=== PATIENT | male | born 1960 | race Caucasian/White ===

== ENCOUNTER 2017-01-09 08:30 | Emergency (ER) | payer BC ==
[~2017-01-09] VITALS: Ht 177.8 cm; Wt 86.2 kg
[~2017-01-09 08:30] MED LIST: HYDR200T PO; LISI1TAB10 PO; TAMS0.4C2 PO
[2017-01-09] MEDS ORDERED: ONDANSETRON 4 MG/2 ML (SDV) Z0FRAN ONE (08:38)
[2017-01-09] MEDS ORDERED: DEXAMETHASONE PF 10 MG/ML (DECADRON) VIAL IV ONE (08:45)
[2017-01-09] MEDS ORDERED: ONDANSETRON 4 MG/2 ML (SDV) Z0FRAN IVP ONE (08:45)
[2017-01-09] MEDS ORDERED: NS IV 1000 ML 1,000 ML IV SCH (08:45)
[2017-01-09 08:58] LABS: BASOPHILS % (AUTO) 0 % (0-10); EOSINOPHILS # (AUTO) 0.3 10^3/uL (0.0-0.3); EOSINOPHILS % (AUTO) 2 % (0-10); LYMPHOCYTES # (AUTO) 1.7 X 10^3 (1.0-4.0); LYMPHOCYTES % (AUTO) 10 % (12-44); MEAN CORPUSCULAR HEMOGLOBIN 32 PG (25-34); MEAN CORPUSCULAR HGB CONC 34 G/DL (32-36); MEAN CORPUSCULAR VOLUME 93 FL (80-99); MEAN PLATELET VOLUME 9.4 FL (7.4-10.4); MONOCYTES # (AUTO) 1.4 X 10^3 (0.0-1.0); MONOCYTES % (AUTO) 9 % (0-12); NEUTROPHILS # (AUTO) 12.9 X 10^3 (1.8-7.8); NEUTROPHILS % (AUTO) 79 % (42-75); PLATELET COUNT 177 10^3/uL (130-400); RED BLOOD COUNT 4.01 10^6/uL (4.35-5.85); RED CELL DISTRIBUTION WIDTH 13.1 % (10.0-14.5); WHITE BLOOD COUNT 16.3 10^3/uL (4.3-11.0)
--- NOTE | 2017-01-09 08:58 | ED General ---
General Stated Complaint: COLLAPSED Source of Information: Patient, EMS, Family Exam Limitations: No Limitations History of Present Illness Time Seen by Provider: 08:34 Initial Comments Here by EMS after having syncopal episode at [facility] today. Apparently finished checking out and then passed out. Denies any pain or injury from that. He does have lung cancer with metastatic brain cancer. He is on Decadron and just had decreased dosing to 2 tablets. Last radiation treatment was yesterday. He is not undergoing chemotherapy currently. He does have port in place but it is apparently not working. This is a new placement 10 days ago. Reports abdominal fullness and nausea with vomiting. EMS noted and he has persistent hypotension. Denies chest pain or breathing problems. He has had difficulty sleeping for the last few weeks since being on Decadron. Timing/Duration: 1-3 Hours Severity: Moderate, Severe Associated Systoms: No Chest Pain, No Cough, Nausea/Vomiting, No Shortness of Air, Syncope, Weakness Allergies and Home Medications Allergies Coded Allergies: No Known Drug Allergies (Verified Allergy, Unknown, 01/11/09) Home Medications Hydroxychloroquine Sulfate 200 Mg Tablet, 200 MG PO BID, (Reported) Lisinopril/Hydrochlorothiazide 1 Each Tablet, 1 EACH PO DAILY, (Reported) Tamsulosin HCl 0.4 Mg Cap.er.24h, 0.4 MG PO DAILY, (Reported) Constitutional: see HPI, chills, No fever, weakness EENTM: no symptoms reported Respiratory: no symptoms reported Cardiovascular: see HPI, No edema, syncope Gastrointestinal: abdominal pain (generalized), nausea, vomiting Genitourinary: no symptoms reported Musculoskeletal: no symptoms reported All Other Systems Reviewed Negative Unless Noted: Yes Past Mmfitth-Jpjnji-Ymnzbd Hx Patient Social History Alcohol Use: Denies Use Recreational Drug Use: No Smoking Status: Former Smoker Surgeries HX Surgeries: Yes (dental sx, ganglion cyst removed) Respiratory Hx Respiratory Disorders: No Cardiovascular Hx Cardiac Disorders: Yes Cardiac Disorders: Hypertension Reproductive System Hx Reproductive Disorders: No Genitourinary Hx Genitourinary Disorders: No Gastrointestinal Hx Gastrointestinal Disorders: No Musculoskeletal Hx Musculoskeletal Disorders: No Endocrine Hx Endocrine Disorders: No HEENT HX ENT Disorders: No Blood Transfusions Hx Blood Disorders: No Reviewed Nursing Assessment Reviewed/Agree w Nursing PMH: Yes Family Medical History Significant Family History: No Pertinent Family Hx Physical Exam-Suspected Sepsis Physical Exam Vital Signs Vital Sign - Last 12Hours 01/09/17 01/09/17 08:30 08:35 Temp 97.5 Pulse 60 Resp 18 Pulse Ox 95 O2 Delivery Room Air O2 Flow Rate 2.00 Capillary Refill : General Appearance: No Apparent Distress, WD/WN HEENT: PERRL/EOMI, Pharynx Normal Neck: Supple, No Tender Lateral, No Tender Midline, Other (bruising noted to the lower neck with puffiness noted anteriorly. Noted upper chest wall closed incisions from port placement with bruising to the anterior upper chest and neck.) Respiratory: No Respiratory Distress, Crackles (left base) Cardiovascular: Regular Rate, Rhythm, No Murmur Gastrointestinal: Non Tender, Soft Back: Normal Inspection, No CVA Tenderness, No Vertebral Tenderness Extremity: Normal Capillary Refill, Normal Inspection, Normal Range of Motion, Non Tender, No Calf Tenderness Neurologic/Psychiatric: Alert, Oriented x3, No Motor/Sensory Deficits, Normal Mood/Affect Skin: cool, ecchymosis (anterior chest as described above) Focused Exam Lactic Acid Level Progress/Results/Core Measures Suspected Sepsis SIRS Temperature: Pulse: Respiratory Rate: Laboratory Tests 01/09/17 08:50: White Blood Count 16.3H Blood Pressure / Mean: Laboratory Tests 01/09/17 08:50: Creatinine 2.70H, INR Comment 1.2, Platelet Count 177, Total Bilirubin 0.5 Results/Orders Lab Results My Orders Orders - SELENE BOLANOS MD Monitor-Rhythm Ecg Trace Only (01/10/17 08:48) Medications Given in ED Vital Signs/I&O Capillary Refill : Progress Note : Progress Note Seen and evaluated. IV by EMS with 1 L normal saline running. Second liter normal saline ordered with second IV established. Labs, chest x-ray, UA, EKG, blood cultures and lactic acid ordered. Concerns for sepsis due to recent cancer and radiation therapy as well as recent port placement. Patient is hypotensive. Patient's weight is estimated at 89 kg. We will initiate third liter of normal saline which will exceeded 30 mL/kg bolus. Decadron 10 mg IV as well as Zofran 4 mg IV ordered and given. Anticipate CT scan of the head as well as chest, abdomen and pelvis. 0947: patient in CT and called down to CT room for concerns of findings. I did review the CT images and noted fairly significant pericardial effusion and patient is having declined pulse pressures as well as blood pressure overall. 0950: I did call Dr. Lamas, surgeon on- call due to concerns for need of pericardiocentesis so that I would have assistance. He will be in the ER shortly. 1006: I have discussed the findings , concerns and procedure to the patient and family. I do believe the patient has moderate pericardial tamponade and requires pericardiocentesis. Dr. Lamas agrees. We placed pigtail catheter into the pericardial space using sterile procedure and ultrasound guidance. Ultrasound guidance by me with Dr. Lamas placing needle. Initially 180 mL of nonclotting blood removed from the pericardial space. Another 120 mL's were removed afterwards with significant improvement in patient's symptoms including decrease in pain as well as improving blood pressure and widening pulse pressure. See Dr. Lamas's procedure note. Patient will require transfer. 1036: I did discuss the case with Dr. Amado, cardiovascular surgeon at [facility] in [place], [place] who wanted me to talk with cardiology. Case discussed with Dr. Woods and he will accept patient to the ICU. All findings, concerns and transfer discussed with patient and family who agree. We will try to go by EMS. 1059: I did discuss the situation with the Shift Captain for EMS. Currently there is another transfer in progress and there will be some delay of up to an hour and a half. This was discussed with patient and family who are okay with waiting and I agree at this point. 1120: Patient's pain is worsening. Blood pressure 89/52 with heart rate of 75. Patient has received Zosyn 4.5 g IV and will get vancomycin 1 g IV. Due to the worsening pain, decision now to go by flight as there could be increased delay in ground transportation and patient needs hospital with higher level of care and potential for cardiothoracic surgery emergently if needed. This was discussed with patient and family who agree. Fentanyl 50 g IV given for pain. Patient has had an additional 420 mL of fluid removed by Dr. Lamas during the preceding time so there is a total of 720 mL of output from pigtail catheter. I did repeat bedside ultrasound shows that the pericardial tamponade greatly reduce. We will attempt to get echocardiogram at this time if available. 1125: Echocardiogram tech is here and will perform that procedure while waiting for flight. Patient has confounding findings and may have findings of septic shock although no specific infection identified. Patient did have 30 mL/kg IV fluid bolus as well as blood cultures and lactic acid followed by administration of Zosyn 4.5 g IV and vancomycin 1 g IV. 1140: Lungs clear to auscultation bilaterally. Heart rate 75. O2 sat 94 percent on room air. Cap refill less than 3 seconds all extremities. Patient mentating well and feeling better. We will avoid pressors at this point due to concerns about bleeding around the heart and patient is otherwise stable. Flight crew here for transfer. An additional 180 mL of pericardial fluid removed by me. Total 900 mL out. Transfer to [facility] via [facility] flight service. Report given by me. ECG Initial ECG Impression Date: January 09, 2017 Initial ECG Impression Time: 08:40 Initial ECG Rate: 77 Initial ECG Rhythm: Normal Sinus Comment Sinus rhythm with PVCs. Normal axis. No evidence of ST elevation PR. Similar to previous from 01/08/2009. Interpreted by. Diagnostic Imaging Diagonstic Imaging: Xray Plain Films/CT/US/NM/MRI: chest Comments NAME: CRISS DIETZ MED REC#: [id number] PT STATUS: REG ER : 1960 PHYSICIAN: SELENE BOLANOS MD ADMIT DATE: 01/09/17/ER Draft Date of Exam:01/09/17 CHEST 1 VIEW, AP/PA ONLY INDICATION: Syncope. History of lung cancer Portable chest shows cardiomegaly with normal vascularity. The lungs are clear. There is no effusion or pneumothorax. A Port-A-Cath is present. IMPRESSION: There is cardiomegaly with no failure. The heart size has increased since the prior study from 01/08/09. Dictated on workstation # [id number] Dict: 01/09/17925 Trans: 01/09/17 0929 CARLOS A [id number] Interpreted by: SKY COVARRUBIAS MD Electronically signed by: Diagonstic Imaging: CT Plain Films/CT/US/NM/MRI: chest, abdomen, pelvis Comments NAME: CRISS DIETZ MED REC#: [id number] PT STATUS: REG ER : 1960 PHYSICIAN: SELENE BOLANOS MD ADMIT DATE: 01/09/17/ER Signed Date of Exam: 01/09/17 CT CHEST/ABDOMEN/PELVIS WO PROCEDURE: CT chest, abdomen, and pelvis without contrast. TECHNIQUE: Multiple contiguous axial images were obtained through the chest, abdomen, and pelvis without the use of intravenous contrast. INDICATION: Syncope. Port-A-Cath not working. Lung cancer with metastatic disease. No prior studies are available for comparison. CT CHEST: There is a 2 cm mass in the left upper lobe just anterior to the major fissure. The left lower lobe is clear. Right lung is clear. There are small bilateral effusions. There is no pneumothorax. There is a moderate pericardial effusion which measures upwards of approximately 3 cm. There is mediastinal lymphadenopathy. There is an AP window lymph node measuring 18 x 18 mm. Azygos lymph node measures 18 x 18 mm. There is a similar sized subcarinal lymph node. There is no contrast but there appears to be some right hilar lymph nodes. No bony lesions are seen. CT ABDOMEN AND PELVIS: The liver, gallbladder and bile ducts are normal. The spleen, pancreas and adrenals are normal. The kidneys, ureters and bladder are normal. There are bilateral inguinal hernias which contain only fat. This is larger on the left than the right. No acute bowel abnormality is seen. There is minimal free fluid in the pericolic gutters. There is no free air. No bony lesions are seen. IMPRESSION: CT of the chest shows left upper lung mass. Pleural effusions and a pericardial effusion. There is mediastinal lymphadenopathy. CT abdomen and pelvis shows a small amount of free fluid with no other acute abnormality. Dictated by: Dictated on workstation # [id number] Dict: 01/09/17 1001 Trans: 01/09/17 1018 Interpreted by: SKY COVARRUBIAS MD Electronically signed by: SKY COVARRUBIAS MD 01/09/17 1018 Diagonstic Imaging: CT Plain Films/CT/US/NM/MRI: head Comments [facility] [place], [place] NAME: CRISS DIETZ [facility] REC#: [id number] PT STATUS: REG ER : 1960 PHYSICIAN: SELENE BOLANOS MD ADMIT DATE: 01/09/17/ER Draft Date of Exam:01/09/17 CT HEAD WO PROCEDURE: CT head without contrast. TECHNIQUE: Multiple contiguous axial images were obtained through the brain without the use of intravenous contrast. INDICATION: Lung cancer with metastatic disease to the brain. No prior studies are available for comparison. Contrast limits evaluation. The ventricles are normal in size, shape and position. There is a 1 cm area of low density involving the left temporal lobe cortex laterally which I am unable to determine if this represents some focal encephalomalacia or acute cortical edema but there is no mass effect at this site. There is also some vague low density changes seen in the zoey on the left which appear slightly more prominent compared to the right. Metastatic disease at this site cannot be excluded. There is no other area of edema, hemorrhage or mass. There is no extra-axial mass or hemorrhage. IMPRESSION: Low-density area in the left lateral temporal lobe and in the zoey on the left. These are producing no significant mass effect with no hemorrhage. No other abnormality is seen. Dictated on workstation # [id number] Dict: 01/09/17 1006 Trans: 01/09/17 1021 [facility] [id number] Interpreted by: SKY COVARRUBIAS MD Electronically signed by: Darshana Imaging: Xray Plain Films/CT/US/NM/MRI: chest Comments NAME: CRISS DIETZ [facility] REC#: [id number] PT STATUS: REG ER : 1960 PHYSICIAN: SELENE BOLANOS MD ADMIT DATE: 01/09/17/ER Signed Date of Exam: 01/09/17 CHEST 1 VIEW, AP/PA ONLY INDICATION: Post drain placement Portable chest shows enlargement of the cardiac silhouette. The vascularity is normal. The lungs are clear. There is no effusion or pneumothorax. A Port-A-Cath is present with tip in the SVC. These findings are similar to the study performed earlier on 01/09/17. IMPRESSION: Stable chest. Dictated by: Dictated on workstation # [id number] Dict: 01/09/17 1110 Trans: 01/09/17 1143 Interpreted by: SKY COVARRUBIAS MD Electronically signed by: SKY COVARRUBIAS MD 01/09/17 9877 Departure Impression Impression: Primary Impression: Pericardial effusion with cardiac tamponade Additional Impressions: Hypotension Qualified Codes: I95.9 - Hypotension, unspecified Syncope Qualified Codes: R55 - Syncope and collapse Lung cancer, primary, with metastasis from lung to other site Qualified Codes: C34.92 - Malignant neoplasm of unspecified part of left bronchus or lung Acute renal failure Qualified Codes: N17.9 - Acute kidney failure, unspecified Disposition: 02 XFER SHT-TRM HOSP Condition: Critical Transfer Transfer Time: 10:36 Transfer Facility: [place], [place], Dr. Woods accepting Method of Transfer: Air Departure-Patient Inst. Referrals: STEFFI CRAWFORD MD (PCP) Primary Care Physician SELENE BOLANOS MD January 09, 2017 08:58
[2017-01-09 09:07] LABS: INR 1.2 (0.8-1.4); PROTHROMBIN TIME PATIENT 14.6 SEC (12.2-14.7)
[2017-01-09] MEDS ORDERED: NS IV 1000 ML 1,000 ML IV ONE (09:09)
[2017-01-09 09:18] LABS: ALBUMIN 2.9 G/DL (3.2-4.5); BILIRUBIN,TOTAL 0.5 MG/DL (0.1-1.0); CALCIUM 7.8 MG/DL (8.5-10.1); CREATININE SERUM 2.7 MG/DL (0.60-1.30); POTASSIUM 4.3 MMOL/L (3.6-5.0); TOTAL PROTEIN 4.5 G/DL (6.4-8.2)
[2017-01-09 09:25] LABS: BAND NEUTROPHILS 3 %; BASOPHILS % (MANUAL) 0 %; EOSINOPHILS % (MANUAL) 2 %; LYMPHOCYTES % (MANUAL) 10 %; METAMYELOCYTES % 1 %; MYELOCYTES % 2 %; NEUTROPHILS % (MANUAL) 77 %
[2017-01-09] MEDS ORDERED: PIPERACILLIN/TAZO 4.5 GM VIAL (ZOSYN) IV ONE (09:30)
--- NOTE | 2017-01-09 09:30 | Diagnostic Imaging Report ---
INDICATION: Syncope. History of lung cancer Portable chest shows cardiomegaly with normal vascularity. The lungs are clear. There is no effusion or pneumothorax. A Port-A-Cath is present. IMPRESSION: There is cardiomegaly with no failure. The heart size has increased since the prior study from 01/08/09. Dictated by: Dictated on workstation # [id number]
[2017-01-09] MEDS ORDERED: fentaNYL INJECTION 100 MCG/2 ML AMP ONE (09:53)
--- NOTE | 2017-01-09 10:09 | Diagnostic Imaging Report ---
PROCEDURE: CT chest, abdomen, and pelvis without contrast. TECHNIQUE: Multiple contiguous axial images were obtained through the chest, abdomen, and pelvis without the use of intravenous contrast. INDICATION: Syncope. Port-A-Cath not working. Lung cancer with metastatic disease. No prior studies are available for comparison. CT CHEST: There is a 2 cm mass in the left upper lobe just anterior to the major fissure. The left lower lobe is clear. Right lung is clear. There are small bilateral effusions. There is no pneumothorax. There is a moderate pericardial effusion which measures upwards of approximately 3 cm. There is mediastinal lymphadenopathy. There is an AP window lymph node measuring 18 x 18 mm. Azygos lymph node measures 18 x 18 mm. There is a similar sized subcarinal lymph node. There is no contrast but there appears to be some right hilar lymph nodes. No bony lesions are seen. CT ABDOMEN AND PELVIS: The liver, gallbladder and bile ducts are normal. The spleen, pancreas and adrenals are normal. The kidneys, ureters and bladder are normal. There are bilateral inguinal hernias which contain only fat. This is larger on the left than the right. No acute bowel abnormality is seen. There is minimal free fluid in the pericolic gutters. There is no free air. No bony lesions are seen. IMPRESSION: CT of the chest shows left upper lung mass. Pleural effusions and a pericardial effusion. There is mediastinal lymphadenopathy. CT abdomen and pelvis shows a small amount of free fluid with no other acute abnormality. Dictated by: Dictated on workstation # [id number]
--- NOTE | 2017-01-09 10:21 | Diagnostic Imaging Report ---
PROCEDURE: CT head without contrast. TECHNIQUE: Multiple contiguous axial images were obtained through the brain without the use of intravenous contrast. INDICATION: Lung cancer with metastatic disease to the brain. No prior studies are available for comparison. Contrast limits evaluation. The ventricles are normal in size, shape and position. There is a 1 cm area of low density involving the left temporal lobe cortex laterally which I am unable to determine if this represents some focal encephalomalacia or acute cortical edema but there is no mass effect at this site. There is also some vague low density changes seen in the zoey on the left which appear slightly more prominent compared to the right. Metastatic disease at this site cannot be excluded. There is no other area of edema, hemorrhage or mass. There is no extra-axial mass or hemorrhage. IMPRESSION: Low-density area in the left lateral temporal lobe and in the zoey on the left. These are producing no significant mass effect with no hemorrhage. No other abnormality is seen. Dictated by: Dictated on workstation # [id number]
[2017-01-09] MEDS ORDERED: VANCOMYCIN INJECTION 1,000 MG in NS (IVPB) 250 ML IV ONE (11:15)
--- NOTE | 2017-01-09 11:15 | Diagnostic Imaging Report ---
INDICATION: Post drain placement Portable chest shows enlargement of the cardiac silhouette. The vascularity is normal. The lungs are clear. There is no effusion or pneumothorax. A Port-A-Cath is present with tip in the SVC. These findings are similar to the study performed earlier on 01/09/17. IMPRESSION: Stable chest. Dictated by: Dictated on workstation # [id number]
--- NOTE | 2017-01-09 11:22 | Progress Note-Post Operative ---
Post-Operative Progess Note Surgeon (s)/Hydraulic Technician (s) Surgeon KEILA TUCKER DO Hydraulic Technician: Dr. Ribeiro Pre-Operative Diagnosis pericardial effusion Post-Operative Diagnosis same Procedure & Operative Findings Date of Procedure 01/09/17 Procedure Preformed/Findings nonclotting blood returned 720 mL removed Anesthesia Type local 6 mL 1% lidocaine Estimated Blood Loss Estimated blood loss (mL): none Specimens/Packing Specimens Removed none Packing: none KEILA TUCKER DO January 09, 2017 11:22
[2017-01-09 12:00] VITALS: BP 132/70
--- NOTE | 2017-01-09 15:44 | Consultation ---
History of Present Illness History of Present Illness Patient Consulted On(candi/time) 01/09/17 15:39 Date of Admission History of Present Illness CC SYNCOPE 56 year old male with Syncope at [facility] brought by EMS. Patient with history of lung cancer with metastasis. Having hypotension with narrowed pressures. Received 3 L of fluids with no response. Was found to have pericardial effusion. Patient has not been feeling well last several days. Having more abdominal discomfort and chest discomfort. Patient with recent radiation treatment and port placement. Patient family at bedside. Ct scan findings of pericardial effusion, mediastinal lymphadenopathy, abdomen/pelvis small amount of free fluid. Allergies and Home Medications Allergies Coded Allergies: No Known Drug Allergies (Verified Allergy, Unknown, 01/11/09) Home Medications Hydroxychloroquine Sulfate 200 Mg Tablet, 200 MG PO BID, (Reported) Lisinopril/Hydrochlorothiazide 1 Each Tablet, 1 EACH PO DAILY, (Reported) Tamsulosin HCl 0.4 Mg Cap.er.24h, 0.4 MG PO DAILY, (Reported) Past Ulzgkkx-Mwjsvx-Iixugj Hx Patient Social History Alcohol Use: Denies Use Recreational Drug Use: No Smoking Status: Former Smoker Recent Foreign Travel: No Contact w/Someone Who Travel: No Recent Infectious Disease Expo: No Recent Hopitalizations: No Surgeries HX Surgeries: Yes (oral, port placement) Respiratory Hx Respiratory Disorders: Yes Cardiovascular Hx Cardiac Disorders: No Cardiac Disorders: Hypertension Neurological Hx Neurological Disorders: No Reproductive System Hx Reproductive Disorders: No Genitourinary Hx Genitourinary Disorders: No Gastrointestinal Hx Gastrointestinal Disorders: No Musculoskeletal Hx Musculoskeletal Disorders: No Endocrine Hx Endocrine Disorders: No HEENT HX ENT Disorders: No Cancer Hx Cancer: Yes (lung with brain mets) Cancer: Lung Psychosocial Hx Psychiatric Problems: Yes Integumentary HX Skin/Integumentary Disorder: No Blood Transfusions Hx Blood Disorders: No Reviewed Nursing Assessment Reviewed/Agree w Nursing PMH: Yes Family Medical History Significant Family History: No Pertinent Family Hx Review of Systems-General Constitutional: see HPI EENTM: no symptoms reported Respiratory: no symptoms reported Cardiovascular: see HPI Gastrointestinal: see HPI Genitourinary: no symptoms reported Musculoskeletal: no symptoms reported Skin: no symptoms reported Psychiatric/Neurological: No Symptoms Reported Physical Exam-General Problems Physical Exam Vital Signs Vital Sign - Last 12Hours 01/09/17 08:30 Temp 97.5 Pulse 60 Resp 18 Pulse Ox 95 O2 Delivery Room Air Capillary Refill : Less Than 3 Seconds General Appearance: moderate distress HEENT: PERRL/EOMI Neck: supple Respiratory: no respiratory distress, no accessory muscle use Cardiovascular: regular rate, rhythm Gastrointestinal: soft, tenderness (mild in epigastric region) Rectal: deferred Back: normal inspection Extremities: non-tender Neurologic/Psychiatric: alert, oriented x 3 Skin: other (face purple, JVD, echymosis left chest incision c/d/i) Data Review Labs Laboratory Tests 01/09/17 08:50: White Blood Count 16.3H, Red Blood Count 4.01L, Hemoglobin 12.8L, Hematocrit 37L , Mean Corpuscular Volume 93, Mean Corpuscular Hemoglobin 32, Mean Corpuscular Hemoglobin Concent 34, Red Cell Distribution Width 13.1, Platelet Count 177, Mean Platelet Volume 9.4, Neutrophils (%) (Auto) 79H, Lymphocytes (%) (Auto) 10L , Monocytes (%) (Auto) 9, Eosinophils (%) (Auto) 2, Basophils (%) (Auto) 0, Neutrophils # (Auto) 12.9H, Lymphocytes # (Auto) 1.7, Monocytes # (Auto) 1.4H, Eosinophils # (Auto) 0.3, Basophils # (Auto) 0.0, Neutrophils % (Manual) 77, Lymphocytes % (Manual) 10, Monocytes % (Manual) 5, Eosinophils % (Manual) 2, Basophils % (Manual) 0, Metamyelocytes % 1, Myelocytes % 2, Band Neutrophils 3, Blood Morphology Comment NORMAL, Prothrombin Time 14.6, INR Comment 1.2, Activated Partial Thromboplast Time 22L, Sodium Level 131L, Potassium Level 4.3 , Chloride Level 101, Carbon Dioxide Level 20L, Anion Gap 10, Blood Urea Nitrogen 44H, Creatinine 2.70H, Estimat Glomerular Filtration Rate 25, BUN/ Creatinine Ratio 16, Glucose Level 151H, Lactic Acid Level 3.50*H, Calcium Level 7.8L, Total Bilirubin 0.5, Aspartate Amino Transf (AST/SGOT) 25, Alanine Aminotransferase (ALT/SGPT) 57H, Alkaline Phosphatase 39L, Total Protein 4.5L, Albumin 2.9L 01/09/17 10:40: Lactic Acid Level 3.05*H Assessment/Plan Assessment/Plan Assessment/Plan pericardial effusion with tamponade syncope lung cancer with metastasis hypotension Patient with no improvement with fluid resuscitation Significant pericardial effusion by CT scan and patient with JVD and narrow pulse pressure systolic pressures in the 60's Discuss[address] with Dr. Ribeiro, patient and family risks and benefits of Percardicentesis which they understand and wish us to proceed. Dr. Ribeiro assisted and performed u/s during procedure. A total of 720 mL of nonclotting blood removed. Patient face returned to normal color and JVD down. Systolic pressures improved into the 90's and patient stating how significantly better he is feeling. Patient being transferred to [facility] arranged by Dr. Ribeiro for Cardiothoracic capabilities. KEILA TUCKER DO January 09, 2017 15:44
--- NOTE | 2017-01-10 16:23 | OPERATIVE REPORT ---
DATE OF SERVICE: 01/09/2017 PREOPERATIVE DIAGNOSIS: Pericardial effusion with tamponade. POSTOPERATIVE DIAGNOSIS: Pericardial effusion with tamponade. SURGEON: Keila Lamas DO. MARKET RESEARCH ASSOCIATE: Dr. Ribeiro to assist with the procedure and ultrasound guidance. PROCEDURE: Pericardiocentesis using ultrasound guidance. ESTIMATED BLOOD LOSS: Minimal. COMPLICATIONS: None. INDICATIONS: The patient is a 56-year-old male with syncopal episode. He was found to have pericardial effusion with tamponade. He had systolic blood pressures in the 60s with narrow pulse pressure. He was purple in the face and with jugular venous distention. His pressures had no improvement with fluid resuscitation. He had CT scan demonstrating pericardial effusion. Risks and benefits of the procedure were discussed with the patient and family. They understand the risks and benefits. Patient wished to proceed with procedure. Consent was signed on the chart. DESCRIPTION OF PROCEDURE: The patient was prepped and draped in sterile fashion. Dr. Ribeiro was using ultrasound demonstrating approximately a 3-cm stripe for pericardial effusion. In the subxiphoid region, a 6 mL of 1% lidocaine was used to anesthetize the area. A #11 blade scalpel was used to make a small skin incision. Using a thoracentesis safety kit the catheter and needle were placed through the incision and then placed just slightly to the left of the xiphoid at a very minimal angle until had fluid return on the syringe. Once fluid return was obtained the catheter was advanced and the needle was removed. There was non-pulsatile, dark, non-clotting blood, which was withdrawn. Ultrasound demonstrating catheter within the pericardial effusion. Initially 180 mL of fluid was withdrawn. The patient's pressure began to increase. A total of 720 mL of non-clotting blood was withdrawn. After this was withdrawn the patient's face returned to normal color. His jugular venous distention improved and his systolic blood pressure began to increase into the 90s. The catheter was sewn into place with 3-0 Prolene. A sterile bandage was applied. After the procedure performed the patient was feeling significantly better. The patient being arranged for transfer to [facility] at this time. Job ID: [id number] DocumentID: [id number] Dictated Date: 01/09/2017 15:56:52 Geotechnician Date: 01/10/2017 10:17:53 Dictated By: KEILA LAMAS DO
--- NOTE | 2017-01-10 20:50 | ECHOCARDIOGRAPHY REPORT ---
DATE OF SERVICE: 01/09/2017 2D ECHOCARDIOGRAM INDICATION: Cardiac tamponade. FINDINGS: 1. The left ventricle is normal in size with normal contractility. Systolic function appeared to be normal, estimated ejection fraction 60%. 2. The left atrium is normal in size. No clot or thrombus was seen. 3. The right atrium and right ventricle are normal in size. Collapsing of the right ventricle was noted during systole, collapse of the right atrium noted during diastole, suggestive of tamponade. 4. Mitral valve is normal in morphology with mild mitral regurgitation noted by color Doppler flow. No mitral valve prolapse. 5. Aortic valve is functioning normally. 6. Tricuspid valve evaluation showed mild tricuspid regurgitation. Doppler across tricuspid valve estimated pulmonary artery pressure of 38 plus right atrial pressure. 7. Pulmonic valve is functioning normally. 8. Intermediate size of pericardial effusion with signs of resolving tamponade. CONCLUSION: 1. Intermediate size pericardial effusion measuring 2 cm in the parasternal view with signs of right atrial collapse, post pericardiocentesis, resolving tamponade 2. Mild mitral and tricuspid regurgitation. 3. Estimated pulmonary artery pressure of 45 mmHg. Job ID: [id number] DocumentID: [id number] Dictated Date: 01/10/2017 11:12:03 Wool Grower Date: 01/10/2017 14:11:39 Dictated By: DEE DE LA VEGA MD MTDD
== END 2017-01-09 12:00 | disposition short-term general hospital (02) ==
LOC: EDUNIT# 08:30 → ER 08:32
DX: J90 Pleural effusion, not elsewhere classified (principal); I31.4 Cardiac tamponade; I95.9 Hypotension, unspecified; C34.90 Malignant neoplasm of unspecified part of unspecified bronchus or lung; C79.31 Secondary malignant neoplasm of brain; N17.9 Acute kidney failure, unspecified; Z87.891 Personal history of nicotine dependence
CPT/HCPCS: 36415; 70450; 71010; 71250; 74176; 80053; 83605; 85007; 85027; 85610; 85730; 87040; 93306; 96361; 96365; 96375